=== PATIENT | female | born 1975 | race Caucasian/White ===

== ENCOUNTER 2016-06-23 20:24 | Emergency (ER) | payer OTHER ==
[~2016-06-23] VITALS: Ht 170.2 cm; Wt 76.2 kg
[2016-06-23 21:24] VITALS: BP 120/69
== END 2016-06-23 22:00 | disposition home or self-care (01) ==
LOC: EDBD 20:24 → M ED 21:15
DX: L76.22 Postprocedural hemorrhage of skin and subcutaneous tissue following other procedure (principal)